=== PATIENT | female | born 1960 | race Caucasian/White ===

== ENCOUNTER 2016-10-09 10:35 | Emergency (ER) | payer OTHER ==
[2016-10-09 11:00] VITALS: BP 135/90; PULSE 94; RESP 18; TEMP 98.8; O2SAT 93
[2016-10-09 11:14] LABS: COLOR YELLOW; NITRITE,URINE NEGATIVE (NEGATIVE); PH,URINE 5.5 (5.0-7.5)
[2016-10-09 11:15] LABS: LEUKOCYTE ESTERASE,URINE 2+ (NEGATIVE)
[2016-10-09 11:25] LABS: MUCUS TRACE /lpf (NONE-1+); RBC,URINE 50-182 /hpf (0-3); RENAL EPITHELIAL CELLS OCCASIONAL /hpf (NONE SEEN); WBC,URINE 50-182 /hpf (0-3)
[2016-10-09 11:26] LABS: BACTERIA 2+ /hpf (NONE SEEN)
--- NOTE | 2016-10-09 11:31 | EDPHY ---
H & P Stated Complaint: UTI S/SX THIS MORNING AT 430AM, URINARY INCONTINENCE Time Seen by Provider: 10/09/16 10:43 HPI/ROS: Chief Complaint: Urinary urgency frequency and incontinence HPI: 56-year-old with a history of urinary tract infections the past is having increasing urinary urgency frequency last 2 days. This morning she had an episode of urinary incontinence. No fevers or chills. No nausea or vomiting. She did take a dose of nitrofurantoin this morning that she had left over from a prior infection. She states she does not want this because he gave her a reaction in the past. ROS: 10 point Review of Systems is negative except as noted in the HPI. PMH: None Social History: No smoking, no alcohol, no recreational drug use Family History: non-contributory Physical Exam: Gen: Awake, Alert, No Distress HEENT: Nose: no rhinorrhea Eyes: PERRLA, EOMI Mouth: Moist mucosa Neck: Supple, no JVD Chest: nontender, lungs clear to auscultation Heart: S1, S2 normal, no murmur Abd: Soft, non-tender, no guarding Back: no CVA tenderness, no midline tenderness Ext: no edema, non-tender Skin: no rash Neuro: CN II-XII intact, Sensation grossly intact, Strength 5/5 in bilateral upper and lower extremities - Medical/Surgical History Other PMH: C/S X2, D&C - Social History Smoking Status: Never smoked Constitutional: Initial Vital Signs Temperature (C) 37.1 C 10/09/16 10:54 Heart Rate 94 10/09/16 10:54 Respiratory Rate 18 10/09/16 10:54 Blood Pressure 135/90 H 10/09/16 10:54 O2 Sat (%) 93 10/09/16 10:54 O2 Delivery Mode Room Air Allergies/Adverse Reactions: nitrofurantoin Allergy (Verified 10/09/16 10:54) Penicillins Allergy (Verified 10/09/16 10:54) Home Medications: Medication Instructions Recorded Cephalexin [Keflex (*)] 500 mg PO Q6H #20 cap 10/09/16 Medical Decision Making ED Course/Re-evaluation: Urinalysis consistent with UTI. Will start on Keflex as the patient does not want nitrofurantoin. - Data Points Laboratory Results: 10/09/16 11:05 Urine Color YELLOW Urine Appearance CLOUDY Urine pH 5.5 (5.0-7.5) Ur Specific [place] 1.025 (1.002-1.030) Urine Protein 2+ H (NEGATIVE) Urine Ketones NEGATIVE (NEGATIVE) Urine Blood 3+ H (NEGATIVE) Urine Nitrate NEGATIVE (NEGATIVE) Urine Bilirubin NEGATIVE (NEGATIVE) Urine Urobilinogen 0.2 EU EU (0.2-1.0) Ur Leukocyte Esterase 2+ H (NEGATIVE) Urine RBC 50-182 /hpf H /hpf (0-3) Urine WBC 50-182 /hpf H /hpf (0-3) Ur Epithelial Cells TRACE /lpf /lpf (NONE-1+) Ur Renal Epithelial Cell OCCASIONAL /hpf H /hpf (NONE SEEN) Urine Bacteria 2+ /hpf H /hpf (NONE SEEN) Urine Mucus TRACE /lpf /lpf (NONE-1+) Urine Glucose NEGATIVE (NEGATIVE) Departure - Departure Disposition: Home, Routine, Self-Care Clinical Impression: Urinary tract infection Condition: Good Instructions: Urinary Tract Infection in Women (ED) Additional Instructions: Follow up with primary care doctor in about 5 days if symptoms are not improving. Return emergency depart for increasing fevers, chills, nausea, vomiting, lightheaded, fainting, or any other concerns. Referrals: Kassandra Guevara MD [Primary Care Provider] - As per Instructions Prescriptions: Cephalexin [Keflex (*)] 500 mg PO Q6H #20 cap
== END 2016-10-09 11:34 | disposition home or self-care (01) ==
LOC: CED 10:35
DX: N39.0 Urinary tract infection, site not specified (principal); B96.89 Other specified bacterial agents as the cause of diseases classified elsewhere
CPT/HCPCS: 81003-PO; 81015-PO

== ENCOUNTER → 2018-07-17 | Outpatient (CLI) | payer OTHER | LOC: EMCIMAGING 10:00 ==